=== PATIENT | female | born 2000 | race Hispanic/Latino ===

== ENCOUNTER 2021-04-09 08:36 | Emergency (ER) | payer OTHER ==
[~2021-04-09] VITALS: Ht 162.6 cm; Wt 85.1 kg
[2021-04-09] MEDS ORDERED: ALBUTEROL 90 MCG/ACT 8GM HFA INHALER INH ONE (10:35)
[2021-04-09] MEDS ORDERED: VENTAER INH (12:12)
[2021-04-09 12:24] VITALS: BP 134/73
== END 2021-04-09 12:31 | disposition home or self-care (01) ==
LOC: M ED 08:36
DX: U07.1 COVID-19 (principal); J06.9 Acute upper respiratory infection, unspecified; F17.200 Nicotine dependence, unspecified, uncomplicated

== ENCOUNTER 2022-01-25 15:43 | Emergency (ER) | payer OTHER ==
[~2022-01-25] VITALS: Ht 162.6 cm; Wt 77.3 kg
[~2022-01-25 15:43] MED LIST: VENTAER INH
[2022-01-25] MEDS ORDERED: NITROFURANTOIN (MACROBID) 100 MG CAP PO ONE (18:25)
[2022-01-25] MEDS ORDERED: NITR-67 PO (18:27)
[2022-01-25] MEDS ORDERED: PYRI1TAB5 PO (18:27)
[2022-01-25 18:39] VITALS: BP 118/76
== END 2022-01-25 18:43 | disposition home or self-care (01) ==
LOC: M ED 15:43
DX: N30.01 Acute cystitis with hematuria (principal); F17.200 Nicotine dependence, unspecified, uncomplicated

== ENCOUNTER 2023-03-21 09:11 | Emergency (ER) | payer OTHER ==
[~2023-03-21] VITALS: Ht 165.1 cm; Wt 90.0 kg
[~2023-03-21 09:11] MED LIST changes: +NITR-67 PO; +PYRI1TAB5 PO
[2023-03-21 09:12] VITALS: BP 156/89
[2023-03-21] MEDS ORDERED: MELO15TA28 (09:28)
[2023-03-21] MEDS ORDERED: CYCL-707 (09:28)
== END 2023-03-21 11:20 | disposition home or self-care (01) ==
LOC: M ED 09:11
DX: M16.11 Unilateral primary osteoarthritis, right hip (principal)